=== PATIENT | female | born 2000 | race Caucasian/White ===

== ENCOUNTER 2024-05-08 20:53 | Outpatient (CLI) | payer OTHER ==
--- NOTE | 2024-05-09 16:32 | Ultrasound Report ---
PROCEDURE: Pelvic Complete INDICATIONS: PELVIC PAIN TECHNIQUE: Real-time transabdominal scanning was performed of the pelvic organs, with image documentation. COMPARISON: None FINDINGS: Patient declined transvaginal exam, limiting evaluation. Uterus: Uterus is anteverted and normal in size at 5.8 x 2.5 x 4.9 cm. The myometrium is homogeneou s. The endometrium measures 3.9 mm in combined thickness. Cervix and vagina are within normal limit s. Ovaries: The right ovary measures 3.6 x 1.6 x 2.5 cm, with a calculated ovarian volume of 7.8 cc. T he left ovary measures 2.8 x 3 x 4 cm, with a calculated ovarian volume of 18 cc. Left ovarian comple x cyst measuring 2.5 x 1.4 x 2.2 cm. The ovaries have a normal sonographic appearance. Less than 12 follicles can be seen in each ovary. No adnexal masses are seen. No cystic lesions measuring greater than 3 cm. Other: No free pelvic fluid. IMPRESSION: Patient declined transvaginal exam, limiting evaluation. 1.Normal sonographic appearance of the uterus and right ovary. 2.Left ovary demonstrates a complex cyst measuring 2.5 x 1.4 x 2.2 cm which is likely hemorrhagic or involuting corpus luteal cyst. Reviewed by: Yanira Severino MD on 05/09/2024 4:31 PM PDT Approved by: Yanira Severino MD on 05/09/2024 4:31 PM PDT Station ID: [id number]
== END 2024-05-08 20:54 | disposition home or self-care (01) ==
LOC: DI 20:53
PROVIDERS: ATTEND Nurse Practitioner Family
DX: R10.2 Pelvic and perineal pain (principal); N83.202 Unspecified ovarian cyst, left side